=== PATIENT | female | born 1955 | race African-American/Black ===

== ENCOUNTER 2018-09-13 10:31 | Emergency (ER) | payer OTHER ==
[2018-09-13 10:47] VITALS: BP 125/80; PULSE 60; TEMP 98.2; BMI 26.1
[2018-09-13] MEDS ORDERED: ACETAMINOPHEN 500 MG TABLET (FP) PO ONE (11:19)
[2018-09-13] MEDS ORDERED: ACETAMINOPHEN 500 MG TABLET (FP) ONE (11:22)
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
== END 2018-09-13 13:07 | disposition home or self-care (01) ==
LOC: JERFT 10:31
DX: S16.1XXA Strain of muscle, fascia and tendon at neck level, initial encounter (principal); S09.8XXA Other specified injuries of head, initial encounter; V43.52XA Car driver injured in collision with other type car in traffic accident, initial encounter; Y92.412 Parkway as the place of occurrence of the external cause; Y93.89 Activity, other specified; Y99.8 Other external cause status; I10 Essential (primary) hypertension; E78.00 Pure hypercholesterolemia, unspecified
CPT/HCPCS: 70450-TC; 72125-TC; 99281-25